=== PATIENT | male | born 1990 | race Two or more races ===

== ENCOUNTER 2017-11-01 09:45 | Inpatient (IN) | payer MEDICAID ==
[~2017-11-01] VITALS: Ht 177.8 cm; Wt 59.4 kg
[2017-11-01 10:50] LABS: CALCIUM 9.3 mg/dL (8.5-10.1); CARBON DIOXIDE 27.4 mmol/L (21-32); CHLORIDE SERUM 100 mmol/L (98-107); CREATININE SERUM 0.8 mg/dL (0.7-1.3); GFR1 > 60 mL/min; GLUCOSE SERUM 86 mg/dL (74-106); POTASSIUM SERUM 3.9 mmol/L (3.5-5.1); SODIUM SERUM 137 mmol/L (136-145)
[2017-11-01 10:55] LABS: ALKALINE PHOSPHATASE 87 U/L (46-116); ALT/SGPT 40 U/L (16-63); AST/SGOT 43 U/L (15-37); BILIRUBIN TOTAL 0.55 mg/dL (0.20-1.00); TOTAL PROTEIN, SERUM 7.1 g/dL (6.4-8.2)
[2017-11-01 10:58] LABS: ALBUMIN 2.6 g/dL (3.4-5.0)
[2017-11-01 11:10] LABS: BASOPHIL % 0.1 % (0-2); PLATELET COUNT 400 x10^3mcL (130-400)
[2017-11-01 11:13] LABS: RED CELL DISTRIBUTION WIDTH 17.1 % (11.5-14.5)
[2017-11-01 11:37] LABS: microscopic required? NO
[2017-11-01 11:46] LABS: urine erythrocyte NEGATIVE (NEGATIVE)
[2017-11-01 12:22] LABS: CHOLESTEROL/HDL RATIO 3.5; PHOSPHOROUS 3.1 mg/dL (2.5-4.9)
[2017-11-01 12:26] LABS: T3 TOTAL 1.29 ng/mL
[2017-11-01 12:27] LABS: FREE T4 1.84 ng/dL (0.76-1.46); FREE THYROXINE INDEX 4.8 ug/dL (1.4-4.5); T4(THYROXINE) 12.1 ug/dL (4.7-13.3)
[2017-11-01 12:28] LABS: MAGNESIUM 1.9 mg/dL (1.8-2.4)
[2017-11-01 14:28] VITALS: BP 108/76
[2017-11-01 17:16] VITALS: BP 107/77
[2017-11-01 17:54] LABS: IRON 77 ug/dL (65-170)
[2017-11-01 17:55] LABS: TOTAL IRON BINDING CAPACITY 182 ug/dL (250-450)
[2017-11-01 18:00] LABS: RED BLOOD CELLS 4.41 M/mm3 (4.52-5.90)
[2017-11-01 20:49] VITALS: BP 127/62
[2017-11-01 21:53] LABS: AMPHETAMINE QUAL UR NONE DETECTED (NEG <=1000)
[2017-11-02 05:53] VITALS: BP 126/91
[2017-11-02 06:53] LABS: BASOPHIL % 0.1 % (0-2); PLATELET COUNT 360 x10^3mcL (130-400)
[2017-11-02 08:17] LABS: CALCIUM 9.1 mg/dL (8.5-10.1); CARBON DIOXIDE 25.9 mmol/L (21-32); CHLORIDE SERUM 103 mmol/L (98-107); CREATININE SERUM 0.7 mg/dL (0.7-1.3); GFR1 > 60 mL/min; GLUCOSE SERUM 104 mg/dL (74-106); MAGNESIUM 2.2 mg/dL (1.8-2.4); PHOSPHOROUS 4.2 mg/dL (2.5-4.9); POTASSIUM SERUM 4.3 mmol/L (3.5-5.1); SODIUM SERUM 138 mmol/L (136-145)
[2017-11-02 09:06] VITALS: BP 127/62
[2017-11-02] MEDS ORDERED: PYR100 PO (10:07)
[2017-11-02] MEDS ORDERED: FLO4 PO (10:07)
[2017-11-02 11:04] VITALS: BP 127/62
== END 2017-11-02 12:10 | disposition home or self-care (01) | DRG 422 ==
LOC: ED 09:45 → DU 11:34
PROVIDERS: Emergency Medicine; Family Medicine
DX: E86.0 Dehydration (principal); E43 Unspecified severe protein-calorie malnutrition; C79.51 Secondary malignant neoplasm of bone; C78.02 Secondary malignant neoplasm of left lung; C78.01 Secondary malignant neoplasm of right lung; C79.82 Secondary malignant neoplasm of genital organs; C79.89 Secondary malignant neoplasm of other specified sites; R19.7 Diarrhea, unspecified; R63.0 Anorexia; T45.1X5A Adverse effect of antineoplastic and immunosuppressive drugs, initial encounter; F06.31 Mood disorder due to known physiological condition with depressive features; D64.9 Anemia, unspecified; Z68.1 Body mass index [BMI] 19.9 or less, adult; Z85.030 Personal history of malignant carcinoid tumor of large intestine; Z93.3 Colostomy status; Y92.009 Unspecified place in unspecified non-institutional (private) residence as the place of occurrence of the external cause
CPT/HCPCS: 83880; 84439; 87046; 87046-59; J1644; J2270; J2930; J7030; Q0092